=== PATIENT | male | born 1940 | race Two or more races ===

== ENCOUNTER 2019-04-27 15:06 | Inpatient (IN) | payer SELFPAY ==
[~2019-04-27] VITALS: Ht 180.3 cm; Wt 77.1 kg
[2019-04-27] MEDS ORDERED: ONDANSETRON HCL 4 MG/2 ML VIAL IV ONE ×2 (16:15→23:45)
[2019-04-27] MEDS ORDERED: MORPHINE SULFATE 4 MG/ML SYR/VIAL IV ONE (16:15)
[2019-04-27 16:33] LABS: INR < 0.93 (0.9-1.15); Partial Thromboplastin Time 22.8 sec (23.64-32.05)
[2019-04-27 16:35] LABS: Albumin 3.8 g/dL (3.4-5.0); Calcium 8.5 mg/dL (8.5-10.1); Potassium 4.2 mmol/L (3.5-5.1)
[2019-04-27 16:40] LABS: Basophils # (auto) 0 uL; Basophils % (auto) 0.5 % (0.0-2.0); Eosinophils # (auto) 0.3 uL; Hematocrit 40.6 % (41.0-53.0); Hemoglobin 13.5 g/dL (13.5-17.5); Lymphocytes # (auto) 1.8 uL; Lymphocytes % (auto) 21.3 % (10.0-50.0); Mean Corpuscular Hemoglobin 31.2 pg (28.0-32.0); Mean Corpuscular Hgb Conc. 33.4 g/dL (32.0-36.0); Mean Corpuscular Volume 93.5 fL (80.0-100.0); Monocytes # (auto) 0.7 uL; Monocytes % (auto) 7.9 % (0.0-12.0); Neutrophils # (auto) 5.6 uL; Neutrophils % (auto) 66.3 % (37.0-80.0); Platelet Count (auto) 275 10^3/uL (140-450); Red Blood Cells 4.34 10^6/uL (4.5-5.90); Red Cell Distribution Width 14.1 % (11.8-14.3); White Blood Cell 8.4 10^3/uL (4.4-10.8)
[2019-04-27 16:41] LABS: BUN/Creatinine Ratio 19.1; Bilirubin, Total 0.3 mg/dL (0.2-1.0); Total Protein 7.8 g/dL (6.4-8.2)
[2019-04-27] MEDS ORDERED: HYDROmorphone HCL 2 MG/ML VL IV ONE ×3 (19:00→22:15)
[2019-04-27] MEDS ORDERED: ceFAZolin 1GM/50ML 50 ML IV ONE (19:00)
[2019-04-27] MEDS ORDERED: fentaNYL CITRATE 100 MCG/2 ML VL IV ONE (23:15)
[2019-04-27] MEDS ORDERED: ETOMIDATE (2MG/ML) 20ML VIAL IV ONE (23:15)
[2019-04-27] MEDS ORDERED: ONDANSETRON HCL 4 MG/2 ML VIAL ONE (23:45)
[2019-04-28] MEDS ORDERED: ONDANSETRON HCL 4 MG/2 ML VIAL IV PRN (01:45)
[2019-04-28] MEDS ORDERED: HYDROcodone-ACET 5/325MG TAB PO PRN (01:45)
[2019-04-28] MEDS ORDERED: ACETAMINOPHEN 500 MG TAB PO PRN (01:45)
[2019-04-28] MEDS ORDERED: MORPHINE SULF INJ 2 MG/ML SYRINGE 1ML IV PRN (01:45)
[2019-04-28 06:15] LABS: Basophils # (auto) 0 uL; Basophils % (auto) 0.4 % (0.0-2.0); Eosinophils # (auto) 0 uL; Eosinophils % (auto) 0.2 % (0.0-7.0); Hematocrit 41.1 % (41.0-53.0); Hemoglobin 13.8 g/dL (13.5-17.5); Lymphocytes % (auto) 13.3 % (10.0-50.0); Mean Corpuscular Hemoglobin 31.6 pg (28.0-32.0); Mean Corpuscular Hgb Conc. 33.5 g/dL (32.0-36.0); Mean Corpuscular Volume 94.4 fL (80.0-100.0); Monocytes # (auto) 0.5 uL; Monocytes % (auto) 6.7 % (0.0-12.0); Neutrophils % (auto) 79.4 % (37.0-80.0); Platelet Count (auto) 253 10^3/uL (140-450); Red Blood Cells 4.36 10^6/uL (4.5-5.90); Red Cell Distribution Width 14.1 % (11.8-14.3); White Blood Cell 7.5 10^3/uL (4.4-10.8)
[2019-04-28 06:37] LABS: BUN/Creatinine Ratio 17.8; Calcium 8.3 mg/dL (8.5-10.1); Potassium 4.4 mmol/L (3.5-5.1)
[2019-04-28 07:01] VITALS: BP 100/48
== END 2019-04-28 08:54 | disposition home or self-care (01) | DRG 563 ==
LOC: ER 15:06 → EDBD 15:06 → TELE 15:07 → MERGE 15:07
PROVIDERS: ADMIT Nurse Practitioner Family; ATTEND Internal Medicine Pulmonary Disease
DX: S52.502A Unspecified fracture of the lower end of left radius, initial encounter for closed fracture (principal); S01.112A Laceration without foreign body of left eyelid and periocular area, initial encounter; S09.90XA Unspecified injury of head, initial encounter; W01.0XXA Fall on same level from slipping, tripping and stumbling without subsequent striking against object, initial encounter; Y92.000 Kitchen of unspecified non-institutional (private) residence as the place of occurrence of the external cause; Y93.89 Activity, other specified; Y99.8 Other external cause status; Z79.899 Other long term (current) drug therapy
CPT/HCPCS: 29125; 36415; 70450; 70486; 73100; 73110; 73200; 80048; 80053; 85025; 85610; 85730; 93005; 94761; 96365; 96375; 96376; G0378; J0690; J2405

== ENCOUNTER 2021-09-28 14:05 | Inpatient (IN) | payer MEDICAID ==
[~2021-09-28] VITALS: Ht 170.2 cm; Wt 66.3 kg
[2021-09-28] MEDS ORDERED: SODIUM CHLORIDE 0.9% 1,000 ML IV ONE (14:45)
[2021-09-28] MEDS ORDERED: ONDANSETRON HCL 4 MG/2 ML VIAL IV ONE (14:45)
[2021-09-28 15:04] LABS: Hematocrit 34.1 % (41.0-53.0); Hemoglobin 11.2 g/dL (13.5-17.5); Mean Corpuscular Hemoglobin 31.4 pg (28.0-32.0); Mean Corpuscular Volume 95.2 fL (80.0-100.0); Red Blood Cells 3.58 10^6/uL (4.5-5.90); Red Cell Distribution Width 13.2 % (11.8-14.3); White Blood Cell 12.3 10^3/uL (4.4-10.8)
[2021-09-28 15:07] LABS: Basophils % (manual) 0 (0.0-2.0); Blast Cells 0; Eosinophils % (manual) 0 (0-7); Metamyelocytes % 0; Myelocytes % 0; Promyelocytes % 0; Reactive Lymphocytes 0
[2021-09-28 15:16] LABS: Albumin 3.2 g/dL (3.4-5.0); Calcium 7.8 mg/dL (8.5-10.1); Potassium 3.5 mmol/L (3.5-5.1)
[2021-09-28 15:21] LABS: BUN/Creatinine Ratio 20.8; Bilirubin, Total 1.4 mg/dL (0.2-1.0)
[2021-09-28 15:27] LABS: Band Neutrophils % (manual) 10; Lymphocytes % (manual) 6 (10.0-50.0); Monocytes % (manual) 5 (0-12)
[2021-09-28 19:23] LABS: Urine Bacteria FEW /hpf (None Seen); Urine Blood 2+ /uL (Negative); Urine Specific Gravity 1.006 (1.001-1.035); Urine WBC 15 /hpf (0 - 3)
[2021-09-28] MEDS ORDERED: cefTRIAXone 1GM/50ML D5W 50 ML IV ONE (20:15)
[2021-09-28 20:19] LABS: Alcohol, Urine < 3.0 mg/dL (0-10); Amphetamine Screen, Urine NEGATIVE (NEGATIVE); Barbiturate Scree,Urine NEGATIVE (NEGATIVE); Benzodiazephine Screen, Urine NEGATIVE (NEGATIVE); Cannabinoid Screen, Urine NEGATIVE (NEGATIVE); Cocaine Screen, Urine NEGATIVE (NEGATIVE); Opiate Scree,Urine NEGATIVE (NEGATIVE); Phencyclidine Screen, Urine NEGATIVE (NEGATIVE)
[2021-09-28] MEDS ORDERED: ONDANSETRON HCL 4 MG/2 ML VIAL IV PRN (21:00)
[2021-09-28] MEDS ORDERED: DOCUSATE SOD 100 MG CAP PO PRN (21:00)
[2021-09-28] MEDS ORDERED: SODIUM CHLORIDE 0.9% 1,000 ML IV SCH (21:00)
[2021-09-28] MEDS ORDERED: MORPHINE SULFATE INJECTION 2 MG/ML SYRG IV PRN (22:45)
[2021-09-28] MEDS ORDERED: NITROGLYCERIN 0.4 MG SL TAB SL PRN (22:45)
[2021-09-29 03:56] VITALS: BP 108/67
[2021-09-29 06:39] LABS: Basophils # (auto) 0 10 ^3/uL (0-0.2); Basophils % (auto) 0.3 % (0.0-2.0); Eosinophils # (auto) 0 10 ^3/uL (0-0.8); Eosinophils % (auto) 0.3 % (0.0-7.0); Hematocrit 35.4 % (41.0-53.0); Hemoglobin 11.7 g/dL (13.5-17.5); Lymphocytes # (auto) 0.6 10 ^3/uL (0.4-5.4); Lymphocytes % (auto) 4.3 % (10.0-50.0); Mean Corpuscular Hemoglobin 31.4 pg (28.0-32.0); Mean Corpuscular Hgb Conc. 33.1 g/dL (32.0-36.0); Monocytes # (auto) 0.9 10 ^3/uL (0-1.3); Monocytes % (auto) 6.6 % (0.0-12.0); Neutrophils # (auto) 11.9 10 ^3/uL (1.6-8.6); Neutrophils % (auto) 88.5 % (37.0-80.0); Red Blood Cells 3.73 10^6/uL (4.5-5.90); Red Cell Distribution Width 13.4 % (11.8-14.3); White Blood Cell 13.5 10^3/uL (4.4-10.8)
[2021-09-29] MEDS ORDERED: IBUP600T28 PO (07:03)
[2021-09-29] MEDS ORDERED: CLON0.1T PO (07:03)
[2021-09-29 07:16] LABS: Calcium 8.4 mg/dL (8.5-10.1); Potassium 3.8 mmol/L (3.5-5.1)
[2021-09-29 07:21] LABS: BUN/Creatinine Ratio 23.2; Bilirubin, Total 0.7 mg/dL (0.2-1.0); Total Protein 7.1 g/dL (6.4-8.2)
[2021-09-29 08:00] VITALS: BP 114/63
[2021-09-29 08:34] VITALS: BP 114/63
[2021-09-29] MEDS ORDERED: LISI-716 PO (09:17)
[2021-09-29] MEDS: ENOXAPARIN SOD 40 MG/0.4 ML SYRINGE SC SCH (09:31)
[2021-09-29] MEDS: ASPirin 81 mg TAB PO SCH (09:31)
[2021-09-29] MEDS: FAMOTIDINE (10MG/ML) 2ML VL IV SCH (09:31)
[2021-09-29] MEDS: ACETAMINOPHEN 325 MG TAB PO PRN (11:59)
[2021-09-29 12:30] VITALS: BP 127/70
[2021-09-29] MEDS: SODIUM CHLORIDE 0.9% 1,000 ML IV SCH ×2 (13:25→19:25)
[2021-09-29 16:59] VITALS: BP 107/65
[2021-09-29] MEDS: HYDROcodone-ACET 5/325MG TAB PO PRN (19:03)
[2021-09-29] MEDS: cefTRIAXone 1GM/50ML D5W 50 ML IV SCH (20:49)
[2021-09-29 21:56] VITALS: BP 107/65
[2021-09-30] MEDS: HYDROcodone-ACET 5/325MG TAB PO PRN (00:09)
[2021-09-30] MEDS: SODIUM CHLORIDE 0.9% 1,000 ML IV SCH ×4 (02:05→22:28)
[2021-09-30 05:16] VITALS: BP 128/68
[2021-09-30 09:00] VITALS: BP 140/72
[2021-09-30] MEDS: ASPirin 81 mg TAB PO SCH (09:25)
[2021-09-30] MEDS: ENOXAPARIN SOD 40 MG/0.4 ML SYRINGE SC SCH (09:25)
[2021-09-30] MEDS: FAMOTIDINE (10MG/ML) 2ML VL IV SCH (09:25)
[2021-09-30] MEDS ORDERED: ZOLPIDEM TARTRATE 5 MG TAB PO PRN (12:00)
[2021-09-30 13:00] VITALS: BP 122/78
[2021-09-30 16:37] VITALS: BP 128/77
[2021-09-30 20:00] VITALS: BP 125/63
[2021-09-30] MEDS: cefTRIAXone 1GM/50ML D5W 50 ML IV SCH (20:55)
[2021-09-30 22:00] VITALS: BP 125/63
[2021-10-01 05:00] VITALS: BP 141/76
[2021-10-01] MEDS: SODIUM CHLORIDE 0.9% 1,000 ML IV SCH (05:30)
[2021-10-01 09:00] VITALS: BP 135/70
[2021-10-01] MEDS: FAMOTIDINE (10MG/ML) 2ML VL IV SCH (10:15)
[2021-10-01] MEDS: ASPirin 81 mg TAB PO SCH (10:15)
[2021-10-01] MEDS: ENOXAPARIN SOD 40 MG/0.4 ML SYRINGE SC SCH (10:16)
[2021-10-01] MEDS: LISINOPRIL 10 MG TAB PO SCH (10:16)
[2021-10-01] MEDS: ACETAMINOPHEN 325 MG TAB PO PRN (12:28)
[2021-10-01 13:00] VITALS: BP 127/75
[2021-10-01 17:00] VITALS: BP 139/77
[2021-10-01] MEDS: cefTRIAXone 1GM/50ML D5W 50 ML IV SCH (21:23)
[2021-10-01 22:06] VITALS: BP 143/78
[2021-10-02 05:00] VITALS: BP 126/62
[2021-10-02 08:00] VITALS: BP 132/85
[2021-10-02 09:00] VITALS: BP 132/85
[2021-10-02] MEDS: ASPirin 81 mg TAB PO SCH (10:26)
[2021-10-02] MEDS: LISINOPRIL 10 MG TAB PO SCH (10:26)
[2021-10-02] MEDS: FAMOTIDINE (10MG/ML) 2ML VL IV SCH (10:26)
[2021-10-02] MEDS: ENOXAPARIN SOD 40 MG/0.4 ML SYRINGE SC SCH (10:27)
[2021-10-02 11:57] VITALS: BP 132/85
== END 2021-10-02 14:00 | disposition home or self-care (01) | DRG 720 ==
LOC: EDBD 14:05 → ER 14:05 → EDUNIT# 14:05 → OVERFLOW 22:40 → WEST WING 23:31
PROVIDERS: ADMIT Nurse Practitioner Family; ATTEND Family Medicine
DX: A41.50 Gram-negative sepsis, unspecified (principal); G93.41 Metabolic encephalopathy; E44.1 Mild protein-calorie malnutrition; R64 Cachexia; E88.09 Other disorders of plasma-protein metabolism, not elsewhere classified; G45.9 Transient cerebral ischemic attack, unspecified; N39.0 Urinary tract infection, site not specified; I10 Essential (primary) hypertension; N40.0 Benign prostatic hyperplasia without lower urinary tract symptoms; B96.1 Klebsiella pneumoniae [K. pneumoniae] as the cause of diseases classified elsewhere; Z20.822 Contact with and (suspected) exposure to COVID-19; Z68.27 Body mass index [BMI] 27.0-27.9, adult
CPT/HCPCS: 36415; 70450; 71045; 74176; 76775; 80053; 80061; 80307; 81001; 83036; 84154; 84484; 85007; 85025; 85027; 87040; 87086; 87088; 87186; 87426; 93005; 96361; 96365; G0378; J0696; J2405; J3490

== ENCOUNTER 2022-02-22 21:26 | Emergency (ER) | payer MEDICAID ==
[~2022-02-22] VITALS: Ht 170.2 cm; Wt 64.6 kg
[~2022-02-22 21:26] MED LIST: CLON0.1T PO; IBUP600T28 PO; LISI-716 PO
[2022-02-23 03:40] VITALS: BP 112/53
[2022-02-23] MEDS ORDERED: HYDROcodone-ACET 5/325MG TAB PO ONE (04:00)
[2022-02-23 04:17] LABS: Basophils # (auto) 0 10 ^3/uL (0-0.2); Basophils % (auto) 0.5 % (0.0-2.0); Eosinophils # (auto) 0.4 10 ^3/uL (0-0.8); Eosinophils % (auto) 6.4 % (0.0-7.0); Hematocrit 36.7 % (41.0-53.0); Hemoglobin 12.2 g/dL (13.5-17.5); Lymphocytes # (auto) 1.6 10 ^3/uL (0.4-5.4); Lymphocytes % (auto) 23.1 % (10.0-50.0); Mean Corpuscular Hemoglobin 31.3 pg (28.0-32.0); Mean Corpuscular Hgb Conc. 33.2 g/dL (32.0-36.0); Mean Corpuscular Volume 94.1 fL (80.0-100.0); Monocytes # (auto) 0.7 10 ^3/uL (0-1.3); Neutrophils # (auto) 4.1 10 ^3/uL (1.6-8.6); Red Cell Distribution Width 14.3 % (11.8-14.3); White Blood Cell 6.9 10^3/uL (4.4-10.8)
[2022-02-23 04:39] LABS: Albumin 3.8 g/dL (3.4-5.0); Calcium 8.7 mg/dL (8.5-10.1)
[2022-02-23 04:41] LABS: BUN/Creatinine Ratio 20.4
[2022-02-23 04:49] LABS: Bilirubin, Total 0.2 mg/dL (0.2-1.0); Total Protein 7.8 g/dL (6.4-8.2)
[2022-02-23] MEDS ORDERED: HYDR-4902 PO (05:50)
== END 2022-02-23 06:22 | disposition home or self-care (01) ==
LOC: ER 21:26
DX: M54.2 Cervicalgia (principal); H93.19 Tinnitus, unspecified ear; Z79.1 Long term (current) use of non-steroidal anti-inflammatories (NSAID); Z79.899 Other long term (current) drug therapy
CPT/HCPCS: 36415; 72125; 80053; 85025

== ENCOUNTER 2022-09-13 08:44 | Emergency (ER) | payer MEDICAID ==
[~2022-09-13] VITALS: Ht 167.6 cm; Wt 70.0 kg
[~2022-09-13 08:44] MED LIST changes: +HYDR-4902 PO
[2022-09-13 10:26] LABS: Albumin 4.2 g/dL (3.4-5.0); Calcium 9.3 mg/dL (8.5-10.1); Potassium 4.5 mmol/L (3.5-5.1)
[2022-09-13 10:30] LABS: BUN/Creatinine Ratio 17.6; Bilirubin, Total 0.7 mg/dL (0.2-1.0); Total Protein 7.9 g/dL (6.4-8.2)
[2022-09-13 11:18] LABS: Basophils # (auto) 0 10 ^3/uL (0-0.2); Basophils % (auto) 0.6 % (0.0-2.0); Eosinophils # (auto) 0.2 10 ^3/uL (0-0.8); Eosinophils % (auto) 2.3 % (0.0-7.0); Hematocrit 41.7 % (41.0-53.0); Hemoglobin 13.7 g/dL (13.5-17.5); Lymphocytes # (auto) 1.2 10 ^3/uL (0.4-5.4); Lymphocytes % (auto) 16.2 % (10.0-50.0); Mean Corpuscular Hemoglobin 31.3 pg (28.0-32.0); Mean Corpuscular Hgb Conc. 32.9 g/dL (32.0-36.0); Monocytes # (auto) 0.6 10 ^3/uL (0-1.3); Neutrophils # (auto) 5.4 10 ^3/uL (1.6-8.6); Neutrophils % (auto) 72.9 % (37.0-80.0); Nucleated Red Blood Cells % 0.1 %; Red Blood Cells 4.39 10^6/uL (4.5-5.90); Red Cell Distribution Width 13.9 % (11.8-14.3); White Blood Cell 7.5 10^3/uL (4.4-10.8)
[2022-09-13 11:55] VITALS: BP 146/73
[2022-09-13 12:14] LABS: Urine Bacteria NONE SEEN /hpf (None Seen); Urine Blood Negative /uL (Negative); Urine Specific Gravity 1.006 (1.001-1.035); Urine WBC <1 /hpf (0 - 3)
[2022-09-13] MEDS ORDERED: HYDROcodone-ACET 5/325MG TAB PO ONE (12:30)
== END 2022-09-13 12:43 | disposition home or self-care (01) ==
LOC: EDBD 08:48 → ER 08:48
DX: F03.90 Unspecified dementia, unspecified severity, without behavioral disturbance, psychotic disturbance, mood disturbance, and anxiety (principal); I10 Essential (primary) hypertension
CPT/HCPCS: 36415; 70450; 71045; 80053; 81001; 84484; 85025

== ENCOUNTER 2022-09-15 22:27 | Emergency (ER) | payer MEDICAID | END 2022-09-16 02:46 | disposition left against medical advice (07) | LOC: ER 22:27 | DX: F91.1 Conduct disorder, childhood-onset type (principal); Z53.21 Procedure and treatment not carried out due to patient leaving prior to being seen by health care provider ==

== ENCOUNTER 2023-02-15 15:06 | Inpatient (IN) | payer MEDICAID ==
[~2023-02-15] VITALS: Ht 170.2 cm; Wt 68.0 kg
[2023-02-15 16:06] LABS: Basophils # (auto) 0 10 ^3/uL (0-0.2); Basophils % (auto) 0.6 % (0.0-2.0); Eosinophils # (auto) 0.4 10 ^3/uL (0-0.8); Eosinophils % (auto) 7.8 % (0.0-7.0); Hematocrit 32.9 % (41.0-53.0); Lymphocytes % (auto) 19.1 % (10.0-50.0); Mean Corpuscular Hemoglobin 31.4 pg (28.0-32.0); Mean Corpuscular Hgb Conc. 33.3 g/dL (32.0-36.0); Mean Corpuscular Volume 94.3 fL (80.0-100.0); Monocytes # (auto) 0.6 10 ^3/uL (0-1.3); Monocytes % (auto) 11.1 % (0.0-12.0); Neutrophils # (auto) 3.3 10 ^3/uL (1.6-8.6); Neutrophils % (auto) 61.4 % (37.0-80.0); Nucleated Red Blood Cells % 0.1 %; Red Blood Cells 3.49 10^6/uL (4.5-5.90); Red Cell Distribution Width 13.6 % (11.8-14.3); White Blood Cell 5.3 10^3/uL (4.4-10.8)
[2023-02-15] MEDS ORDERED: cefTRIAXone 1GM/50ML D5W 50 ML IV ONE (16:30)
[2023-02-15 16:35] LABS: Albumin 3.9 g/dL (3.4-5.0); Calcium 8.9 mg/dL (8.5-10.1); Magnesium 2.2 mg/dL (1.6-2.6); Potassium 4.2 mmol/L (3.5-5.1)
[2023-02-15 16:40] LABS: BUN/Creatinine Ratio 24.3 (10.0-20.0); Bilirubin, Total 0.5 mg/dL (0.2-1.0); CRP High Sensitivity 0.52 mg/dL (< 0.3); Total Protein 7.2 g/dL (6.4-8.2)
[2023-02-15] MEDS ORDERED: ONDANSETRON HCL 4 MG/2 ML VIAL IV PRN (23:00)
[2023-02-15] MEDS ORDERED: hydrALAZINE HCL 20 MG/ML VL IV PRN (23:00)
[2023-02-15] MEDS ORDERED: HYDROcodone-ACET 5/325MG TAB PO PRN (23:00)
[2023-02-15] MEDS ORDERED: ACETAMINOPHEN 325 MG TAB PO PRN (23:00)
[2023-02-15] MEDS ORDERED: DOCUSATE SOD 100 MG CAP PO PRN (23:00)
[2023-02-15] MEDS: SODIUM CHLORIDE 0.9% 1,000 ML IV SCH (23:37)
[2023-02-15 23:57] LABS: Urine Bacteria NONE SEEN /hpf (None Seen); Urine Blood Negative /uL (Negative); Urine Mucus FEW (None Seen); Urine Specific Gravity 1.022 (1.001-1.035); Urine WBC 1 /hpf (0 - 3)
[2023-02-16] MEDS ORDERED: NITROGLYCERIN 0.4 MG SL TAB SL PRN
[2023-02-16] MEDS ORDERED: MORPHINE SULFATE INJ 2 MG/ml SYRG IV PRN
[2023-02-16 00:12] LABS: Alcohol, Urine < 3.0 mg/dL (0-10); Amphetamine Screen, Urine NEGATIVE (NEGATIVE); Barbiturate Scree,Urine NEGATIVE (NEGATIVE); Benzodiazephine Screen, Urine NEGATIVE (NEGATIVE); Cannabinoid Screen, Urine NEGATIVE (NEGATIVE); Cocaine Screen, Urine NEGATIVE (NEGATIVE); Opiate Scree,Urine NEGATIVE (NEGATIVE); Phencyclidine Screen, Urine NEGATIVE (NEGATIVE)
[2023-02-16] MEDS ORDERED: MELATONIN 5 MG TAB PO ONE ×2 (05:00→22:00)
[2023-02-16 05:41] LABS: Basophils # (auto) 0 10 ^3/uL (0-0.2); Basophils % (auto) 0.7 % (0.0-2.0); Eosinophils # (auto) 0.6 10 ^3/uL (0-0.8); Eosinophils % (auto) 9.1 % (0.0-7.0); Hematocrit 33.4 % (41.0-53.0); Hemoglobin 11.5 g/dL (13.5-17.5); Lymphocytes % (auto) 16.5 % (10.0-50.0); Mean Corpuscular Hemoglobin 32.3 pg (28.0-32.0); Mean Corpuscular Hgb Conc. 34.4 g/dL (32.0-36.0); Monocytes # (auto) 0.6 10 ^3/uL (0-1.3); Monocytes % (auto) 9.9 % (0.0-12.0); Neutrophils # (auto) 3.9 10 ^3/uL (1.6-8.6); Neutrophils % (auto) 63.8 % (37.0-80.0); Red Blood Cells 3.55 10^6/uL (4.5-5.90); Red Cell Distribution Width 13.3 % (11.8-14.3); White Blood Cell 6.2 10^3/uL (4.4-10.8)
[2023-02-16 05:49] LABS: Calcium 8.6 mg/dL (8.5-10.1); Potassium 3.8 mmol/L (3.5-5.1)
[2023-02-16 05:53] LABS: Albumin 3.6 g/dL (3.4-5.0); BUN/Creatinine Ratio 22.5 (10.0-20.0)
[2023-02-16 05:55] LABS: Bilirubin, Total 0.6 mg/dL (0.2-1.0); Total Protein 6.9 g/dL (6.4-8.2)
[2023-02-16] MEDS: ASPirin 81 mg TAB PO SCH (08:49)
[2023-02-16] MEDS: FAMOTIDINE (10MG/ML) 2ML VL IV SCH (08:49)
[2023-02-16] MEDS: SODIUM CHLORIDE 0.9% 1,000 ML IV SCH (15:43)
[2023-02-16] MEDS ORDERED: cefTRIAXone 1GM/50ML D5W 50 ML IV SCH (20:00)
[2023-02-16 22:00] VITALS: BP 168/80
[2023-02-16 23:00] VITALS: BP 155/60
[2023-02-17] MEDS ORDERED: LOS25T PO (00:56)
[2023-02-17] MEDS ORDERED: RISP2TAB62 PO (00:56)
[2023-02-17] MEDS ORDERED: OXCA600T3 PO (00:56)
[2023-02-17 05:00] VITALS: BP 165/81
[2023-02-17 05:23] VITALS: BP 145/59
[2023-02-17 08:00] VITALS: BP 130/66
[2023-02-17 08:15] VITALS: BP 130/66
[2023-02-17] MEDS: SODIUM CHLORIDE 0.9% 1,000 ML IV SCH (08:45)
[2023-02-17] MEDS: ASPirin 81 mg TAB PO SCH (09:05)
[2023-02-17] MEDS: FAMOTIDINE (10MG/ML) 2ML VL IV SCH (09:05)
[2023-02-17] MEDS ORDERED: OXCARBAZEPINE PO SCH (10:00)
[2023-02-17] MEDS ORDERED: risperiDONE 1 MG TAB PO SCH (10:00)
[2023-02-17 12:00] VITALS: BP 117/75
[2023-02-17 13:56] VITALS: BP 117/75
== END 2023-02-17 14:36 | disposition home or self-care (01) | DRG 812 ==
LOC: ER 15:06 → TELE 23:56 → TELE-CENTR 02-16 22:28
PROVIDERS: ADMIT Nurse Practitioner Family; ATTEND Nurse Practitioner Family
DX: T43.591A Poisoning by other antipsychotics and neuroleptics, accidental (unintentional), initial encounter (principal); G92.8 Other toxic encephalopathy; F20.9 Schizophrenia, unspecified; I10 Essential (primary) hypertension; R26.81 Unsteadiness on feet; Z79.1 Long term (current) use of non-steroidal anti-inflammatories (NSAID); Z79.899 Other long term (current) drug therapy; Z79.891 Long term (current) use of opiate analgesic; Y92.89 Other specified places as the place of occurrence of the external cause
CPT/HCPCS: 36415; 70450; 71045; 80053; 80307; 81001; 82140; 82550; 82962; 83605; 83735; 83880; 84484; 85025; 86141; 93005; 96365; 96367; G0378; J0696; J3490

== ENCOUNTER 2023-02-25 20:31 | Emergency (ER) | payer MEDICAID ==
[~2023-02-25] VITALS: Ht 162.6 cm; Wt 70.4 kg
[~2023-02-25 20:31] MED LIST changes: +LOS25T PO; +OXCA600T3 PO; +RISP2TAB62 PO
[2023-02-26 00:57] VITALS: BP 147/63
== END 2023-02-26 01:04 | disposition home or self-care (01) ==
LOC: ER 20:31
DX: S01.81XA Laceration without foreign body of other part of head, initial encounter (principal); I10 Essential (primary) hypertension; F20.9 Schizophrenia, unspecified; W01.110A Fall on same level from slipping, tripping and stumbling with subsequent striking against sharp glass, initial encounter; Y93.89 Activity, other specified; Y92.098 Other place in other non-institutional residence as the place of occurrence of the external cause; Y99.8 Other external cause status
CPT/HCPCS: 70450; 70486; 72125